=== PATIENT | male | born 1950 | race Caucasian/White ===

== ENCOUNTER 2017-03-20 10:45 | Inpatient (IN) | payer BC, MEDICARE ==
[~2017-03-20] VITALS: Ht 153.9 cm; Wt 53.0 kg
[~2017-03-20 10:45] MED LIST: ALBU18 IN; LISI2.5T47; TIOTCAP IN
[2017-03-20] MEDS ORDERED: ALBU1AER4 IN (12:04)
[2017-03-20] MEDS ORDERED: MOME200A IN (12:04)
[2017-03-20] MEDS ORDERED: IBUP800T24 PO (12:04)
[2017-03-20 12:36] VITALS: BP 116/74
[2017-03-20] MEDS ORDERED: ALBUTEROL SULF 2.5 MG/0.5ML(0.5%) NEB SOLN NEB PRN (14:30)
[2017-03-20] MEDS ORDERED: POTASSIUM CHL 20 Meq TABLET PO ONE (14:30)
[2017-03-20] MEDS ORDERED: HYDROcodone-ACET 5/325MG TAB PO PRN (14:30)
[2017-03-20] MEDS ORDERED: ONDANSETRON HCL 4 MG/2 ML VIAL IV PRN (14:30)
[2017-03-20] MEDS ORDERED: LORazepam 0.5 MG TAB PO PRN (14:30)
[2017-03-20] MEDS ORDERED: FUROSEMIDE 20 MG/2 ML VIAL IV ONE (14:30)
[2017-03-20 15:18] LABS: Basophils # (auto) 0 uL; Basophils % (auto) 0.2 % (0.0-2.0); CONDITION Y; Eosinophils # (auto) 0.2 uL; Eosinophils % (auto) 2.5 % (0.0-7.0); Hematocrit 31.2 % (41.0-53.0); Hemoglobin 10.6 g/dL (13.5-17.5); Lymphocytes # (auto) 0.5 uL; Lymphocytes % (auto) 7.8 % (10.0-50.0); Mean Corpuscular Hemoglobin 32.2 pg (28.0-32.0); Mean Corpuscular Hgb Conc. 34.1 g/dL (32.0-36.0); Mean Corpuscular Volume 94.6 fL (80.0-100.0); Monocytes # (auto) 0.7 uL; Monocytes % (auto) 10.8 % (0.0-12.0); Neutrophils # (auto) 4.7 uL; Neutrophils % (auto) 78.7 % (37.0-80.0); Platelet Count (auto) 427 10^3/uL (140-450); Red Cell Distribution Width 14.7 % (11.6-16.0)
[2017-03-20 15:27] LABS: Albumin 3.6 g/dL (3.4-5.0); Bilirubin, Total 0.3 mg/dL (0.2-1.0); Potassium 5.4 mmol/L (3.5-5.1); Total Protein 7.1 g/dL (6.4-8.2)
[2017-03-20 15:33] LABS: B-Type Natriuretic Peptide 60.68 pg/mL (0-100)
[2017-03-20 15:51] LABS: Temperature: 24.1 C (20.0-25.0)
[2017-03-20 17:23] VITALS: BP 104/68
[2017-03-20 17:23] LABS: Urine RBC None Seen /hpf (0 - 3)
[2017-03-20 17:48] LABS: Urine Bilirubin Negative (Negative); Urine Blood Negative /uL (Negative); Urine Glucose Normal (Normal); Urine Ketone Negative (Negative); Urine Nitrite Negative (Negative); Urine Squamous Epithelial Cell FEW /hpf (<5); Urine Urobilinogen Normal (Negative)
[2017-03-20 17:49] LABS: Urine Color Straw (Yellow)
[2017-03-20] MEDS: IPRATROPIUM BROM 0.5 MG/2.5ML INH SOL NEB SCH (19:08)
[2017-03-20] MEDS: BUDESONIDE (INHALATION) 0.5 MG/2 ML NEB NEB SCH (19:08)
[2017-03-20] MEDS: ALBUTEROL SULF 2.5 MG/0.5ML(0.5%) NEB SOLN NEB SCH (19:08)
[2017-03-20 20:36] LABS: Base Excess 0.8 mmol/L (-2.0-2.0); Blood 02Sat 88.2 % (96-100); Blood COHb 0.3 % (0.5-1.5); Blood MetHb 0.3 % (0.0-1.5); HCO3 26.9 mmol/L (22-26.0); HHb 11.7 % (0.0-5.0); MODE ROOM AIR; O2Hb 87.7 % (94.0-97.0); PCO2 50.1 mmHg (35.0-45.0); PCO2(T) 50.1 mmHg (35.0-45.0); PO2 56.4 mmHg (80.0-100.0); PO2(T) 56.4 mmHg (80.0-100.0); Sample Type Arterial; pH 7.348 (7.350-7.450)
[2017-03-20 21:58] VITALS: BP 119/68
[2017-03-21 02:18] VITALS: BP 119/68
[2017-03-21 05:27] VITALS: BP 120/70
[2017-03-21 06:12] LABS: Basophils # (auto) 0 uL; Basophils % (auto) 0.3 % (0.0-2.0); CONDITION Y; Eosinophils # (auto) 0.3 uL; Eosinophils % (auto) 5.4 % (0.0-7.0); Hematocrit 30.7 % (41.0-53.0); Hemoglobin 10.1 g/dL (13.5-17.5); Lymphocytes # (auto) 0.5 uL; Lymphocytes % (auto) 9.5 % (10.0-50.0); Mean Corpuscular Hemoglobin 31.3 pg (28.0-32.0); Mean Corpuscular Hgb Conc. 32.9 g/dL (32.0-36.0); Mean Platelet Volume 7.5 fL (7.4-10.4); Monocytes # (auto) 0.7 uL; Monocytes % (auto) 11.8 % (0.0-12.0); Platelet Count (auto) 414 10^3/uL (140-450); Red Cell Distribution Width 14.9 % (11.6-16.0); White Blood Cell 5.5 10^3/uL (4.4-10.8)
[2017-03-21 06:23] LABS: BUN/Creatinine Ratio 37.3; Calcium 9.2 mg/dL (8.5-10.1); Potassium 4.8 mmol/L (3.5-5.1)
[2017-03-21] MEDS: IPRATROPIUM BROM 0.5 MG/2.5ML INH SOL NEB SCH ×3 (06:26→12:00)
[2017-03-21] MEDS: BUDESONIDE (INHALATION) 0.5 MG/2 ML NEB NEB SCH (06:26)
[2017-03-21] MEDS: ALBUTEROL SULF 2.5 MG/0.5ML(0.5%) NEB SOLN NEB SCH ×3 (06:26→12:00)
[2017-03-21 08:00] VITALS: BP 124/75
[2017-03-21 08:35] VITALS: BP 124/75
[2017-03-21 11:09] LABS: Allen Test Yes; Base Excess -1.7 mmol/L (-2.0-2.0); Blood 02Sat 83.9 % (96-100); Blood COHb 0.3 % (0.5-1.5); Blood MetHb 0.4 % (0.0-1.5); MODE ROOM AIR; O2Hb 83.3 % (94.0-97.0); PCO2 51.2 mmHg (35.0-45.0); PCO2(T) 51.2 mmHg (35.0-45.0); PO2 50.5 mmHg (80.0-100.0); PO2(T) 50.5 mmHg (80.0-100.0); Sample Type Arterial; pH 7.307 (7.350-7.450)
[2017-03-21 12:07] VITALS: BP 124/75
[2017-03-21 12:13] VITALS: BP 108/56
== END 2017-03-21 17:58 | disposition home or self-care (01) | DRG 190 ==
LOC: TELE-E-ADS 11:22 → TELE-EAST 14:00 → EAST 19:03
PROVIDERS: ADMIT Internal Medicine; ATTEND Internal Medicine
DX: J44.1 Chronic obstructive pulmonary disease with (acute) exacerbation (principal); I50.31 Acute diastolic (congestive) heart failure; J96.10 Chronic respiratory failure, unspecified whether with hypoxia or hypercapnia; I11.0 Hypertensive heart disease with heart failure; F41.9 Anxiety disorder, unspecified; D64.9 Anemia, unspecified; Z99.81 Dependence on supplemental oxygen; Z87.891 Personal history of nicotine dependence
CPT/HCPCS: 36415; 36600; 71020; 80048; 80053; 81001; 82805; 83880; 85025; 93306; 94640

== ENCOUNTER → 2018-06-18 | Outpatient (CLI) | payer BC, MEDICARE ==
[~2018-06-18] MED LIST changes: -ALBU18 IN; +ALBU1AER4 IN; +IBUP800T24 PO; +MOME200A IN
[2018-06-18 08:49] LABS: Basophils # (auto) 0 uL; Basophils % (auto) 0.4 % (0.0-2.0); Eosinophils # (auto) 0.3 uL; Eosinophils % (auto) 7.2 % (0.0-7.0); Hematocrit 34.6 % (41.0-53.0); Hemoglobin 11.7 g/dL (13.5-17.5); Lymphocytes # (auto) 0.5 uL; Lymphocytes % (auto) 10.9 % (10.0-50.0); Mean Corpuscular Hemoglobin 32.6 pg (28.0-32.0); Mean Corpuscular Hgb Conc. 33.9 g/dL (32.0-36.0); Mean Corpuscular Volume 96.3 fL (80.0-100.0); Monocytes # (auto) 0.6 uL; Monocytes % (auto) 13.2 % (0.0-12.0); Neutrophils # (auto) 3.2 uL; Neutrophils % (auto) 68.3 % (37.0-80.0); Nucleated Red Blood Cells % 0.1 %; Platelet Count (auto) 321 10^3/uL (140-450); Red Cell Distribution Width 15.3 % (11.8-14.3); White Blood Cell 4.6 10^3/uL (4.4-10.8)
[2018-06-18 08:53] LABS: Urine Bacteria NONE SEEN /hpf (None Seen); Urine Blood Negative /uL (Negative); Urine Specific Gravity 1.012 (1.001-1.035); Urine WBC <1 /hpf (0 - 3)
[2018-06-18 09:09] LABS: Albumin 3.9 g/dL (3.4-5.0); Calcium 9.1 mg/dL (8.5-10.1)
[2018-06-18 09:13] LABS: Bilirubin, Total 0.3 mg/dL (0.2-1.0); Total Protein 7.5 g/dL (6.4-8.2)
[2018-06-18 09:24] LABS: BUN/Creatinine Ratio 32.2
[2018-06-18 09:30] LABS: Potassium 5.7 mmol/L (3.5-5.1)
== END | disposition home or self-care (01) ==
LOC: LAB 08:20
PROVIDERS: ATTEND Nurse Practitioner
DX: E78.5 Hyperlipidemia, unspecified (principal); J44.9 Chronic obstructive pulmonary disease, unspecified; Z87.891 Personal history of nicotine dependence
CPT/HCPCS: 36415; 80053; 80061; 81001; 84153; 84443; 85025

== ENCOUNTER → 2018-06-18 | Outpatient (CLI) | payer MEDICARE | END | disposition home or self-care (01) | LOC: RT 08:36 | PROVIDERS: ATTEND Nurse Practitioner | DX: J44.9 Chronic obstructive pulmonary disease, unspecified (principal) | CPT/HCPCS: 36600; 82805 ==

== ENCOUNTER → 2018-06-22 | Outpatient (CLI) | payer MEDICARE ==
[2018-06-22 12:40] LABS: Potassium 4.8 mmol/L (3.5-5.1)
[2018-06-22 12:46] LABS: BUN/Creatinine Ratio 28.7; Bilirubin, Total 0.5 mg/dL (0.2-1.0); Calcium 8.9 mg/dL (8.5-10.1); Total Protein 7.5 g/dL (6.4-8.2)
== END | disposition home or self-care (01) ==
LOC: LAB 10:48
PROVIDERS: ATTEND Nurse Practitioner
DX: E87.5 Hyperkalemia (principal)
CPT/HCPCS: 36415; 80053

== ENCOUNTER → 2018-12-06 | Outpatient (CLI) | payer MEDICARE ==
[2018-12-06 09:32] LABS: Urine WBC None Seen /hpf (0 - 3)
[2018-12-06 09:37] LABS: Basophils # (auto) 0.1 uL; Basophils % (auto) 1.6 % (0.0-2.0); Eosinophils # (auto) 0.1 uL; Eosinophils % (auto) 1.7 % (0.0-7.0); Hematocrit 33.9 % (41.0-53.0); Hemoglobin 11.1 g/dL (13.5-17.5); Lymphocytes # (auto) 0.7 uL; Lymphocytes % (auto) 15.4 % (10.0-50.0); Mean Corpuscular Hemoglobin 31.6 pg (28.0-32.0); Mean Corpuscular Hgb Conc. 32.8 g/dL (32.0-36.0); Mean Corpuscular Volume 96.3 fL (80.0-100.0); Monocytes # (auto) 0.4 uL; Monocytes % (auto) 8.5 % (0.0-12.0); Neutrophils # (auto) 3.4 uL; Neutrophils % (auto) 72.8 % (37.0-80.0); Nucleated Red Blood Cells % 0.1 %; Platelet Count (auto) 314 10^3/uL (140-450); Red Blood Cells 3.52 10^6/uL (4.5-5.90); Red Cell Distribution Width 15.5 % (11.8-14.3); White Blood Cell 4.6 10^3/uL (4.4-10.8)
[2018-12-06 09:44] LABS: Urine Bacteria NONE SEEN /hpf (None Seen); Urine Blood Negative /uL (Negative); Urine Specific Gravity 1.018 (1.001-1.035)
[2018-12-06 10:04] LABS: Albumin 4.1 g/dL (3.4-5.0); Calcium 9.2 mg/dL (8.5-10.1); Potassium 4.8 mmol/L (3.5-5.1)
[2018-12-06 10:10] LABS: BUN/Creatinine Ratio 31.1; Bilirubin, Total 0.4 mg/dL (0.2-1.0); Total Protein 7.5 g/dL (6.4-8.2)
== END | disposition home or self-care (01) ==
LOC: LAB 08:48
PROVIDERS: ATTEND Nurse Practitioner
DX: E78.5 Hyperlipidemia, unspecified (principal)
CPT/HCPCS: 36415; 80053; 80061; 81001; 84443; 85025

== ENCOUNTER → 2018-12-10 | Outpatient (CLI) | payer MEDICARE | END | disposition home or self-care (01) | LOC: LAB 11:01 | PROVIDERS: ATTEND Nurse Practitioner | DX: E78.5 Hyperlipidemia, unspecified (principal) | CPT/HCPCS: 82270 ==

== ENCOUNTER → 2019-02-27 | Outpatient (CLI) | payer MEDICARE ==
[~2019-02-27] MED LIST changes: +ALBUTEROL SULF 2.5 MG/0.5ML(0.5%) NEB SOLN ONE
== END | disposition home or self-care (01) ==
LOC: RT 08:35
PROVIDERS: ATTEND Internal Medicine Pulmonary Disease
DX: R06.02 Shortness of breath (principal)
CPT/HCPCS: 94060; J7611

== ENCOUNTER → 2019-07-24 | Outpatient (CLI) | payer MEDICARE ==
[~2019-07-24] MED LIST changes: -ALBUTEROL SULF 2.5 MG/0.5ML(0.5%) NEB SOLN ONE
== END | disposition home or self-care (01) ==
LOC: RT 09:04
PROVIDERS: ATTEND Internal Medicine
DX: J96.11 Chronic respiratory failure with hypoxia (principal); J44.9 Chronic obstructive pulmonary disease, unspecified
CPT/HCPCS: 36600; 82805; 94640

== ENCOUNTER → 2019-12-18 | Day surgery (SDC) | payer MEDICARE ==
[2019-12-13 09:29] LABS: Basophils # (auto) 0 10 ^3/uL (0-0.2); Eosinophils # (auto) 0.3 10 ^3/uL (0-0.8); Eosinophils % (auto) 8.6 % (0.0-7.0); Hematocrit 34.3 % (41.0-53.0); Hemoglobin 11.2 g/dL (13.5-17.5); Lymphocytes # (auto) 0.6 10 ^3/uL (0.4-5.4); Lymphocytes % (auto) 14.9 % (10.0-50.0); Mean Corpuscular Hemoglobin 31.4 pg (28.0-32.0); Mean Corpuscular Hgb Conc. 32.7 g/dL (32.0-36.0); Mean Corpuscular Volume 95.9 fL (80.0-100.0); Monocytes # (auto) 0.5 10 ^3/uL (0-1.3); Monocytes % (auto) 12.2 % (0.0-12.0); Neutrophils # (auto) 2.5 10 ^3/uL (1.6-8.6); Neutrophils % (auto) 63.3 % (37.0-80.0); Platelet Count (auto) 303 10^3/uL (140-450); Red Blood Cells 3.58 10^6/uL (4.5-5.90); Red Cell Distribution Width 15.7 % (11.8-14.3); White Blood Cell 3.9 10^3/uL (4.4-10.8)
[2019-12-13 09:33] LABS: Urine Bacteria NONE SEEN /hpf (None Seen); Urine Blood Negative /uL (Negative); Urine Hyaline Cast MOD /lpf (0 - 2); Urine Specific Gravity 1.018 (1.001-1.035); Urine WBC <1 /hpf (0 - 3)
[2019-12-13 09:46] LABS: Calcium 9.1 mg/dL (8.5-10.1); Potassium 4.2 mmol/L (3.5-5.1)
[2019-12-13 09:52] LABS: BUN/Creatinine Ratio 19.4; Bilirubin, Total 0.5 mg/dL (0.2-1.0); Total Protein 7.6 g/dL (6.4-8.2)
[2019-12-13 10:11] LABS: Partial Thromboplastin Time 26.2 sec (23.64-32.05)
[~2019-12-18] VITALS: Ht 167.6 cm; Wt 61.2 kg
[~2019-12-18] MED LIST changes: +FLUT1INH6 IN; +LIDOCAINE HCL 2 %PF INJ 10ML AMP IJ ONE; +LISI-646 PO; -LISI2.5T47; -MOME200A IN; +ceFAZolin 1GM VL ONE; +ceFAZolin 1GM/50ML 50 ML IV ONE
[2019-12-18 10:34] VITALS: BP 151/81
== END | disposition home or self-care (01) ==
LOC: SUR 07:52
PROVIDERS: ATTEND Podiatrist Foot & Ankle Surgery
DX: L97.819 Non-pressure chronic ulcer of other part of right lower leg with unspecified severity (principal); L89.893 Pressure ulcer of other site, stage 3; J43.9 Emphysema, unspecified; F41.9 Anxiety disorder, unspecified; Z79.899 Other long term (current) drug therapy; Z98.890 Other specified postprocedural states
CPT/HCPCS: 15004; 15275; 36415; 80053; 81001; 85025; 85610; 85730; 88304; 88312; 88313; J0690; Q4161

== ENCOUNTER → 2020-03-27 | Outpatient (CLI) | payer MEDICARE ==
[~2020-03-27] MED LIST changes: -LIDOCAINE HCL 2 %PF INJ 10ML AMP IJ ONE; -ceFAZolin 1GM VL ONE; -ceFAZolin 1GM/50ML 50 ML IV ONE
[2020-03-27 09:53] LABS: Urine WBC None Seen /hpf (0 - 3)
[2020-03-27 10:25] LABS: Basophils # (auto) 0 10 ^3/uL (0-0.2); Eosinophils # (auto) 0.2 10 ^3/uL (0-0.8); Hematocrit 33.8 % (41.0-53.0); Hemoglobin 10.9 g/dL (13.5-17.5); Lymphocytes # (auto) 0.6 10 ^3/uL (0.4-5.4); Lymphocytes % (auto) 13.1 % (10.0-50.0); Mean Corpuscular Hemoglobin 30.6 pg (28.0-32.0); Mean Corpuscular Hgb Conc. 32.2 g/dL (32.0-36.0); Mean Corpuscular Volume 95.3 fL (80.0-100.0); Monocytes # (auto) 0.5 10 ^3/uL (0-1.3); Neutrophils # (auto) 2.9 10 ^3/uL (1.6-8.6); Neutrophils % (auto) 68.9 % (37.0-80.0); Nucleated Red Blood Cells % 0.1 %; Platelet Count (auto) 290 10^3/uL (140-450); Red Blood Cells 3.55 10^6/uL (4.5-5.90); White Blood Cell 4.3 10^3/uL (4.4-10.8)
[2020-03-27 10:29] LABS: Urine Bacteria NONE SEEN /hpf (None Seen); Urine Blood Negative /uL (Negative); Urine Specific Gravity 1.015 (1.001-1.035)
[2020-03-27 11:00] LABS: Albumin 4.3 g/dL (3.4-5.0); Calcium 8.9 mg/dL (8.5-10.1); Potassium 4.7 mmol/L (3.5-5.1)
[2020-03-27 11:07] LABS: BUN/Creatinine Ratio 26.8; Bilirubin, Total 0.5 mg/dL (0.2-1.0); Total Protein 7.2 g/dL (6.4-8.2)
== END | disposition home or self-care (01) ==
LOC: LAB 09:47
PROVIDERS: ATTEND Nurse Practitioner
DX: E78.5 Hyperlipidemia, unspecified (principal); Z00.00 Encounter for general adult medical examination without abnormal findings; R73.9 Hyperglycemia, unspecified
CPT/HCPCS: 36415; 80053; 80061; 81001; 83036; 84443; 85025

== ENCOUNTER 2020-04-21 09:46 | Inpatient (IN) | payer MEDICARE ==
[~2020-04-21] VITALS: Ht 167.6 cm; Wt 58.9 kg
[2020-04-21] MEDS ORDERED: SODIUM CHLORIDE 0.9% 1,000 ML IV ONE ×2 (10:24→12:15)
[2020-04-21] MEDS ORDERED: methylPREDNISolone SOD SUCC 125 MG/2 ML VL IV ONE (10:30)
[2020-04-21] MEDS ORDERED: ALBUTEROL SULF 2.5 MG/0.5ML(0.5%) NEB SOLN NEB ONE (10:30)
[2020-04-21 11:12] LABS: Urine WBC None Seen /hpf (0 - 3)
[2020-04-21 11:13] LABS: Hemoglobin 11.8 g/dL (13.5-17.5); Mean Corpuscular Hemoglobin 31.2 pg (28.0-32.0); Mean Corpuscular Hgb Conc. 32.9 g/dL (32.0-36.0); Platelet Count (auto) 365 10^3/uL (140-450); Red Blood Cells 3.79 10^6/uL (4.5-5.90); Red Cell Distribution Width 14.6 % (11.8-14.3); White Blood Cell 6.4 10^3/uL (4.4-10.8)
[2020-04-21 11:24] LABS: Urine Bacteria NONE SEEN /hpf (None Seen); Urine Blood Negative /uL (Negative); Urine Hyaline Cast FEW /lpf (0 - 2)
[2020-04-21 11:29] LABS: Albumin 3.6 g/dL (3.4-5.0); Anion Gap 4 (5-15); Blood Urea Nitrogen 45 mg/dL (7-18); Calcium 9.5 mg/dL (8.5-10.1); Carbon Dioxide 32 mmol/L (21-32); Chloride 104 mmol/L (98-107); Glucose 100 mg/dL (74-106); INR 0.97 (0.9-1.15); Partial Thromboplastin Time 23.8 sec (23.0-31.2); Potassium 4.4 mmol/L (3.5-5.1); Sodium 140 mmol/L (136-145)
[2020-04-21 11:35] LABS: Alanine Aminotransferase 18 U/L (16-61); Alkaline Phosphatase 50 U/L (45-117); Aspartate Aminotransferase 14 U/L (15-37); BUN/Creatinine Ratio 35.7; Bilirubin, Total 0.2 mg/dL (0.2-1.0); GFR African American 73 mL/min; GFR Non-African American 60 mL/min; Total Protein 7.5 g/dL (6.4-8.2)
[2020-04-21] MEDS ORDERED: AZITHROMYCIN 500MG/ 250ML 250 ML IV ONE (11:45)
[2020-04-21] MEDS ORDERED: cefTRIAXone 1GM/50ML D5W 50 ML IV ONE (11:45)
[2020-04-21 12:00] LABS: Band Neutrophils % (manual) 0; Basophils % (manual) 0 (0.0-2.0); Blast Cells 0; Metamyelocytes % 0; Myelocytes % 0; Promyelocytes % 0; Reactive Lymphocytes 0
[2020-04-21] MEDS: SODIUM CHLORIDE 0.9% 1,000 ML IV SCH (12:01)
[2020-04-21 12:02] LABS: Eosinophils % (manual) 26 (0-7); Lymphocytes % (manual) 11 (10.0-50.0); Monocytes % (manual) 6 (0-12)
[2020-04-21] MEDS ORDERED: ALUM & MAG HYDROX-SIMETH LIQ(MAALOX) 30 ML PO PRN (12:15)
[2020-04-21] MEDS ORDERED: LORazepam 0.5 MG TAB PO PRN (12:15)
[2020-04-21] MEDS ORDERED: ACETAMINOPHEN 325 MG TAB PO PRN ×2 (12:15→14:45)
[2020-04-21] MEDS ORDERED: ACETAMINOPHEN 500 MG TAB PO PRN (12:15)
[2020-04-21] MEDS ORDERED: ONDANSETRON HCL 4 MG/2 ML VIAL IV PRN (12:15)
[2020-04-21] MEDS ORDERED: MORPHINE SULF INJ 2 MG/ML SYRINGE 1ML IV PRN ×2 (12:15)
[2020-04-21] MEDS ORDERED: NITROGLYCERIN 0.4 MG SL TAB SL PRN (12:15)
[2020-04-21] MEDS ORDERED: DOCUSATE SOD 100 MG CAP PO PRN (12:15)
[2020-04-21] MEDS ORDERED: HYDROcodone-ACET 5/325MG TAB PO PRN (12:15)
[2020-04-21] MEDS ORDERED: METOCLOPRAMIDE HCL 5MG/ml INJ 2ml VIAL IV PRN (12:15)
[2020-04-21] MEDS ORDERED: ALBUAER3 IN (12:52)
[2020-04-21] MEDS ORDERED: LISINOPRIL 10 MG TAB PO ONE (13:00)
[2020-04-21] MEDS ORDERED: FUROSEMIDE 20 MG/2 ML VIAL IV ONE (13:00)
[2020-04-21 13:30] VITALS: BP 175/70
[2020-04-21 13:50] LABS: Magnesium 2.4 mg/dL (1.6-2.6)
[2020-04-21 13:56] LABS: Alcohol, Urine < 3.0 mg/dL (0-10); Amphetamine Screen, Urine NEGATIVE (NEGATIVE); Barbiturate Scree,Urine NEGATIVE (NEGATIVE); Benzodiazephine Screen, Urine NEGATIVE (NEGATIVE); Cannabinoid Screen, Urine NEGATIVE (NEGATIVE); Cocaine Screen, Urine NEGATIVE (NEGATIVE); Opiate Scree,Urine NEGATIVE (NEGATIVE); Phencyclidine Screen, Urine NEGATIVE (NEGATIVE)
[2020-04-21 13:58] LABS: CRP High Sensitivity 2.35 mg/dL (< 0.3)
[2020-04-21] MEDS ORDERED: ALBUTEROL SULF HFA 90MCG INH 200DOSE IN SCH (14:00)
[2020-04-21 14:42] VITALS: BP 149/57
--- NOTE | 2020-04-21 14:42 | NUR ---
MS admit from [facility] admitted to tele/MS after SBAR received. Patient oriented to UZIEL GOFF RN primary RN, TELE unit, room 249, bed B, and unit policies regarding patient care and visiting hours. Patient weighed by bedscale and encouraged to call if they need something. All questions and concerns addressed, patient verbalized understanding.
[2020-04-21] MEDS ORDERED: hydrALAZINE HCL 20 MG/ML VL IV PRN (15:00)
--- NOTE | 2020-04-21 16:40 | NUR ---
DC'D ALBUTEROL 180 MCG/ PULMICORT 360MCG PER PROTOCOL FOR COVID NEGATIVE RESULTS. PT ORDERED ALBUTEROL Q4 PRN. NO RESPIRATORY DISTRESS NOTED. WILL CONTINUE TO MONITOR PT.
[2020-04-21 16:41] VITALS: BP 131/52
[2020-04-21] MEDS ORDERED: ALBUTEROL SULF 2.5 MG/0.5ML(0.5%) NEB SOLN NEB PRN ×2 (16:45→17:00)
[2020-04-21] MEDS ORDERED: FUROSEMIDE 20 MG/2 ML VIAL IV SCH (18:00)
--- NOTE | 2020-04-21 18:00 | NUR ---
PATIENT ARRIVED FROM [facility] TO ROOM 282 VIA WHEELCHAIR. PATIENT TOLERATED TRANSFER VIA WHEELCHAIR WITH NO SIGNS OF DISTRESS. PATIENT PLACED ON 4L NC. PATIENT TELEBOX CHANGED FROM NUMBER 3 TO TELEBOX NUMBER 74. WILL CONTINUE TO MONITOR.
--- NOTE | 2020-04-21 18:20 | NUR ---
CARE ENDORSED TO JORGE: REPORT GIVEN TO JORGE LESLIE AT ROOM 282 BEDSIDE. PATIENT LEFT WITH ALL BELONGINGS.
--- NOTE | 2020-04-21 18:29 | NUR ---
CALL TO : REACHED, PASSWORD RECEIVED. UPDATED ON PLAN OF CARE. ADDRESSED CONCERNS TO BEST OF THIS RN'S ABILITY.
--- NOTE | 2020-04-21 19:40 | NUR ---
Opening Shift Note Assumed care of patient, awake and alert x4. No S/S of distress/SOB or pain. Call light is within reach, side rails up x2, bed is in the lowest position. Instructed on POC and to call for assist PRN. All questions and concerns addressed, will continue to monitor for changes Q1hr and PRN.
[2020-04-21 21:40] LABS: Lactic Acid w/Reflex 2.2 mmol/L (0.4-2.0)
[2020-04-21 21:42] LABS: Cholesterol 163 mg/dL (< 200); HDL Cholesterol 61 mg/dL (40-59); LDL Cholesterol 95 mg/dL (< 100); Triglycerides 50 mg/dL (< 150)
[2020-04-21 22:00] VITALS: BP 102/53
[2020-04-21] MEDS ORDERED: BUDESONIDE (INHALATION) 180 MCG IH IN SCH (22:00)
[2020-04-21] MEDS: FAMOTIDINE (10MG/ML) 2ML VL IV SCH (22:02)
--- NOTE | 2020-04-21 22:58 | NUR ---
Respiratory note: PT SLEEPING AT THIS TIME, NO RESP DISTRESS NOTED, NO TX INDICATED, PULSE OX 100% ON 4LNC, HR 77, RR 18
[2020-04-22] MEDS: SODIUM CHLORIDE 0.9% 1,000 ML IV SCH (04:41)
[2020-04-22 05:24] VITALS: BP 107/62
[2020-04-22 05:41] LABS: Basophils # (auto) 0 10 ^3/uL (0-0.2); Basophils % (auto) 0.5 % (0.0-2.0); Eosinophils # (auto) 0 10 ^3/uL (0-0.8); Eosinophils % (auto) 0.1 % (0.0-7.0); Hematocrit 30.5 % (41.0-53.0); Hemoglobin 10.1 g/dL (13.5-17.5); Lymphocytes # (auto) 0.2 10 ^3/uL (0.4-5.4); Lymphocytes % (auto) 4.1 % (10.0-50.0); Mean Corpuscular Hemoglobin 31.3 pg (28.0-32.0); Monocytes # (auto) 0.2 10 ^3/uL (0-1.3); Monocytes % (auto) 4.2 % (0.0-12.0); Neutrophils # (auto) 4.2 10 ^3/uL (1.6-8.6); Neutrophils % (auto) 91.1 % (37.0-80.0); Platelet Count (auto) 357 10^3/uL (140-450); Red Blood Cells 3.21 10^6/uL (4.5-5.90); Red Cell Distribution Width 14.8 % (11.8-14.3); White Blood Cell 4.6 10^3/uL (4.4-10.8)
[2020-04-22 06:08] LABS: Potassium 4.9 mmol/L (3.5-5.1)
[2020-04-22 06:15] LABS: Albumin 3.2 g/dL (3.4-5.0); BUN/Creatinine Ratio 39.5; Bilirubin, Total 0.2 mg/dL (0.2-1.0); Calcium 9.1 mg/dL (8.5-10.1); Total Protein 6.5 g/dL (6.4-8.2)
--- NOTE | 2020-04-22 06:58 | NUR ---
IV removal by patient IV DC'd with clean sterile technique, catheter fully intact. Pressure dressing applied to site. Patient tolerated well.
--- NOTE | 2020-04-22 08:00 | NUR ---
Opening Shift Note Assumed care of patient, awake, alert and oriented X4. No S/S of distress/SOB or pain. O2 @ 4 LPM via nasal cannula with sats @ 98%. Tele# [id number], sinus tachycardia @ 101 bpm. Patient has no IV access as per night nurse, "he pulled it out". Night nurse attempted new access with no results. Instructed on POC and to call for assist PRN, verbalized understanding. Bed locked, in lowest position, call light within reach, will continue to monitor for changes Q1hr and PRN.
--- NOTE | 2020-04-22 08:00 | NUR ---
Respiratory note: PT AWAKE, AND ALERT. NO RESPIRATORY DISTRESS NOTED. SP02 96% 4L NC, HR 98, RR 18, BS CLEAR/DIMINISHED BILATERALLY. PRN MEDNEB TX NOT INDICATED AT THIS TIME. PT INFORMED TO PUSH CALL BUTTON IF INCREASED WOB, SOB, OR WHEEZING OCCURS.
[2020-04-22 09:00] VITALS: BP 121/66
[2020-04-22] MEDS: cefTRIAXone 1GM/50ML D5W 50 ML IV SCH (09:10)
--- NOTE | 2020-04-22 09:10 | NUR ---
IV insertion IV access obtained, via clean sterile technique by inserting 22 gauge catheter at right forearm after 2 attempts. IV secured properly. No trauma to site. Patient tolerated well.
[2020-04-22] MEDS ORDERED: ENOXAPARIN SOD 40 MG/0.4 ML SYRINGE SC SCH (10:00)
[2020-04-22] MEDS ORDERED: DexAMETHasone SOD PHOS 10MG/1ML VIAL INJ IV SCH (10:00)
[2020-04-22] MEDS ORDERED: ASCORBIC ACID 1,000 MG TAB PO SCH (10:00)
[2020-04-22] MEDS ORDERED: CHOLECALCIFEROL (VITD3) 2,000 UNIT CAP PO SCH (10:00)
[2020-04-22] MEDS: ZINC SULFATE 220mg CAP or TAB PO SCH (10:00)
[2020-04-22] MEDS: FAMOTIDINE (10MG/ML) 2ML VL IV SCH (10:33)
[2020-04-22] MEDS: AZITHROMYCIN 500MG/ 250ML 250 ML IV SCH (10:33)
[2020-04-22] MEDS: LISINOPRIL 10 MG TAB PO SCH (10:34)
--- NOTE | 2020-04-22 11:05 | NUR ---
PULMONARY Dr Moore at bedside for Pulmonary consult, new orders received and followed through. Patient updated on plan of care, verbalized understanding.
--- NOTE | 2020-04-22 12:24 | NUR ---
ROUNDS Dr Ames at bedside for rounds, new orders received and followed through. Patient updated on plan of care, verbalized understanding. Per Dr Ames, patient's 02 decreased to 3 LPM via nasal cannula.
--- NOTE | 2020-04-22 12:28 | NUR ---
SPUTUM Specimen container give to patient for sputum sample. Informed to call talent solutions manager light when sputum sample collected, verbalized understanding.
[2020-04-22 13:00] VITALS: BP 126/77
[2020-04-22 16:55] VITALS: BP 114/80
--- NOTE | 2020-04-22 18:49 | NUR ---
Respiratory note: ASSESSED PT FOR PRN MED NEB AT THIS TIME, PT DENIES SOB AT THIS TIME, NO RESP DISTRESS NOTED, NO TX INDICATED. PULSE OX 100% ON 4LNC, HR 77, RR 18, BILATERAL BS DIMINISHED. TITRATED FIO2 TO 3LNC AT THIS TIME
--- NOTE | 2020-04-22 19:02 | NUR ---
Care endorsed to ANUJ Beltran, night nurse.
--- NOTE | 2020-04-22 21:59 | NUR ---
Paged hospitalist, patient is requesting a sleeping pill.
[2020-04-22 22:00] VITALS: BP 97/65
[2020-04-22] MEDS ORDERED: methylPREDNISolone SOD SUCC 40 MG/ML VL IV SCH (22:00)
[2020-04-22] MEDS ORDERED: TEMAZEPAM 15 MG CAP PO ONE (22:30)
--- NOTE | 2020-04-22 22:30 | NUR ---
Hospitalist called back, new order received for Temazepam 15 mg one time. See eMAR.
[2020-04-23 05:00] VITALS: BP 102/61
--- NOTE | 2020-04-23 07:45 | NUR ---
Opening Shift Note Assumed care of patient, awake and alert. No S/S of distress/SOB, reports feeling better, remains on O2 at 4l, denies pain. Instructed on POC and to call for assist PRN, will continue to monitor for changes Q1hr and PRN.
[2020-04-23 09:00] VITALS: BP 115/65
[2020-04-23] MEDS: cefTRIAXone 1GM/50ML D5W 50 ML IV SCH (09:24)
[2020-04-23] MEDS: ZINC SULFATE 220mg CAP or TAB PO SCH (09:38)
[2020-04-23] MEDS ORDERED: CHOLECALCIFEROL (VITD3) 1,000UNIT=25mCg TAB PO SCH (10:00)
[2020-04-23] MEDS ORDERED: ASCORBIC ACID 500 MG TAB PO SCH (10:00)
[2020-04-23] MEDS: predniSONE 20 MG TAB PO SCH (10:17)
[2020-04-23] MEDS: LISINOPRIL 10 MG TAB PO SCH (10:17)
[2020-04-23] MEDS: AZITHROMYCIN 500MG/ 250ML 250 ML IV SCH (10:17)
--- NOTE | 2020-04-23 10:18 | NUR ---
Respiratory note: ASSESSED PT FOR PRN MEDNEB TX. HR 85, RR 16, SPO2 97% ON 3LPM NASAL CANNULA. BREATH SOUNDS CLEAR T/O. PT SITTING IN CHAIR, DENIES SOB, NO S/S OF DISTRESS. MEDNEB TX NOT INDICATED AT THIS TIME. PT AWARE TO CALL FOR RT IF NEEDED.
[2020-04-23] MEDS: IPRATROPIUM BROM 0.5 MG/2.5ML INH SOL NEB SCH ×2 (12:13→18:04)
[2020-04-23] MEDS: ALBUTEROL SULF 2.5 MG/0.5ML(0.5%) NEB SOLN NEB SCH ×2 (12:13→18:04)
--- NOTE | 2020-04-23 12:13 | NUR ---
Respiratory note: AT BEDSIDE FOR SCHEDULED 1200 MEDNEB TX, PT EATING LUNCH AND REQUESTING TO TAKE TX LATER. NO S/S OF DISTRESS. WILL RETURN AT A LATER TIME.
[2020-04-23] MEDS: DOXYCYCLINE 100MG/250ML 250 ML IV SCH ×2 (14:59→23:15)
--- NOTE | 2020-04-23 19:52 | NUR ---
Opening Shift Note Received report and assumed care of patient. Patient is awake and alert. No signs or symptoms of distress noted. Instructed patient on plan of care and to call for assistance as needed. Will continue to monitor.
[2020-04-23 22:00] VITALS: BP 113/61
[2020-04-24 05:24] VITALS: BP 125/95
[2020-04-24] MEDS: IPRATROPIUM BROM 0.5 MG/2.5ML INH SOL NEB SCH ×2 (06:44→11:43)
[2020-04-24] MEDS: ALBUTEROL SULF 2.5 MG/0.5ML(0.5%) NEB SOLN NEB SCH ×2 (06:44→11:43)
--- NOTE | 2020-04-24 07:19 | NUR ---
Opening Shift Note Assumed care of patient, awake and alert, reports frustration and wants to go home. No S/S of distress/SOB or pain. Instructed on POC and to call for assist PRN, will continue to monitor for changes Q1hr and PRN.
[2020-04-24 09:00] VITALS: BP 141/72
[2020-04-24] MEDS: ZINC SULFATE 220mg CAP or TAB PO SCH (09:52)
[2020-04-24] MEDS: predniSONE 20 MG TAB PO SCH (09:52)
[2020-04-24] MEDS: LISINOPRIL 10 MG TAB PO SCH (09:53)
[2020-04-24 09:57] VITALS: BP 141/72
[2020-04-24] MEDS: DOXYCYCLINE 100MG/250ML 250 ML IV SCH (12:37)
[2020-04-24 13:00] VITALS: BP 125/73
[2020-04-24 13:09] VITALS: BP 141/72
--- NOTE | 2020-04-24 14:40 | NUR ---
Discharge instructions given as ordered. Encourage to follow up with PMD as instructed. All questions and concerns addressed. Patient verbalized understanding. Medication reconciliation form completed and copy given to patient. . IV removed with catheter intact, pressure dressing applied. Patient taken to vehicle via wheelchair with all personal belongings, accompanied by staff to family member. No distress noted at time of departure.
== END 2020-04-24 14:15 | disposition home or self-care (01) | DRG 193 ==
LOC: ER 09:46 → TELE 09:47 → TELE-EAST 14:38 → TELE-WESTW 18:11 → WEST WING 04-22 13:15
PROVIDERS: ADMIT Hospitalist; ATTEND Internal Medicine
DX: J18.9 Pneumonia, unspecified organism (principal); J96.22 Acute and chronic respiratory failure with hypercapnia; J96.21 Acute and chronic respiratory failure with hypoxia; I48.92 Unspecified atrial flutter; I47.1 Supraventricular tachycardia; R64 Cachexia; I10 Essential (primary) hypertension; Z68.20 Body mass index [BMI] 20.0-20.9, adult; D64.9 Anemia, unspecified; F41.9 Anxiety disorder, unspecified; I48.91 Unspecified atrial fibrillation; F17.200 Nicotine dependence, unspecified, uncomplicated; J43.9 Emphysema, unspecified; Z20.828 Contact with and (suspected) exposure to other viral communicable diseases; Z79.899 Other long term (current) drug therapy; Z86.14 Personal history of Methicillin resistant Staphylococcus aureus infection; Z99.81 Dependence on supplemental oxygen
CPT/HCPCS: 36415; 36600; 71045; 71250; 80053; 80061; 80307; 81001; 82728; 82805; 83036; 83605; 83615; 83735; 83880; 84443; 84484; 85007; 85025; 85027; 85379; 85610; 85730; 86141; 86738; 87040; 87070; 87077; 87086; 87186; 87205; 87278; 87426; 93005; 93306; 94640; 99291; G0378; J0696; J3490

== ENCOUNTER → 2020-12-08 | Outpatient (CLI) | payer MEDICARE ==
[~2020-12-08] MED LIST changes: -ALBU1AER4 IN; +ALBUAER3 IN; -IBUP800T24 PO; +IBUP800T26 PO; -LISI-646 PO; +LISI20TA28 PO
[2020-12-08 10:20] LABS: Basophils # (auto) 0 10 ^3/uL (0-0.2); Hemoglobin 7.3 g/dL (13.5-17.5); Lymphocytes # (auto) 0.5 10 ^3/uL (0.4-5.4); Monocytes # (auto) 0.5 10 ^3/uL (0-1.3); Neutrophils # (auto) 3.4 10 ^3/uL (1.6-8.6); Nucleated Red Blood Cells % 0.1 %; White Blood Cell 4.6 10^3/uL (4.4-10.8)
[2020-12-08 10:26] LABS: Basophils % (auto) 0.6 % (0.0-2.0); Eosinophils # (auto) 0.2 10 ^3/uL (0-0.8); Eosinophils % (auto) 3.5 % (0.0-7.0); Hematocrit 21.9 % (41.0-53.0); Lymphocytes % (auto) 11.3 % (10.0-50.0); Mean Corpuscular Hemoglobin 32.7 pg (28.0-32.0); Mean Corpuscular Hgb Conc. 33.2 g/dL (32.0-36.0); Mean Corpuscular Volume 98.4 fL (80.0-100.0); Monocytes % (auto) 11.8 % (0.0-12.0); Neutrophils % (auto) 72.8 % (37.0-80.0); Platelet Count (auto) 355 10^3/uL (140-450); Red Blood Cells 2.22 10^6/uL (4.5-5.90)
[2020-12-08 10:50] LABS: Urine Bacteria NONE SEEN /hpf (None Seen); Urine Blood Negative /uL (Negative); Urine Hyaline Cast FEW /lpf (0 - 2); Urine Mucus FEW (None Seen); Urine Specific Gravity 1.016 (1.001-1.035); Urine WBC <1 /hpf (0 - 3)
[2020-12-08 11:18] LABS: BUN/Creatinine Ratio 28.3
[2020-12-08 11:41] LABS: Potassium 5.6 mmol/L (3.5-5.1)
== END | disposition home or self-care (01) ==
LOC: LAB 09:59
PROVIDERS: ATTEND Student in an Organized Health Care Education/Training Program
DX: I10 Essential (primary) hypertension (principal); K92.1 Melena; R53.83 Other fatigue
CPT/HCPCS: 36415; 80048; 81001; 82270; 84443; 85025

== ENCOUNTER → 2021-01-08 | Outpatient (CLI) | payer MEDICARE ==
[2021-01-08 10:26] LABS: Basophils # (auto) 0 10 ^3/uL (0-0.2); Basophils % (auto) 0.7 % (0.0-2.0); Eosinophils # (auto) 0.1 10 ^3/uL (0-0.8); Eosinophils % (auto) 1.6 % (0.0-7.0); Hematocrit 28.6 % (41.0-53.0); Hemoglobin 9.5 g/dL (13.5-17.5); Lymphocytes # (auto) 0.5 10 ^3/uL (0.4-5.4); Mean Corpuscular Hemoglobin 32.2 pg (28.0-32.0); Mean Corpuscular Hgb Conc. 33.2 g/dL (32.0-36.0); Monocytes # (auto) 0.5 10 ^3/uL (0-1.3); Neutrophils # (auto) 3.4 10 ^3/uL (1.6-8.6); Neutrophils % (auto) 74.7 % (37.0-80.0); Platelet Count (auto) 393 10^3/uL (140-450); Red Blood Cells 2.95 10^6/uL (4.5-5.90); Red Cell Distribution Width 17.8 % (11.8-14.3); White Blood Cell 4.5 10^3/uL (4.4-10.8)
== END | disposition home or self-care (01) ==
LOC: LAB 10:09
PROVIDERS: ATTEND Student in an Organized Health Care Education/Training Program
DX: Z12.11 Encounter for screening for malignant neoplasm of colon (principal); D50.0 Iron deficiency anemia secondary to blood loss (chronic)
CPT/HCPCS: 36415; 85025

== ENCOUNTER 2021-03-17 09:35 | Emergency (ER) | payer MEDICARE ==
[~2021-03-17] VITALS: Ht 170.2 cm; Wt 59.0 kg
[2021-03-17] MEDS ORDERED: IPRATROPIUM BROM 0.5 MG/2.5ML INH SOL NEB ONE (10:00)
[2021-03-17] MEDS ORDERED: ALBUTEROL SULF 2.5 MG/0.5ML(0.5%) NEB SOLN NEB ONE (10:00)
[2021-03-17] MEDS ORDERED: methylPREDNISolone SOD SUCC 125 MG/2 ML VL IV ONE (10:00)
[2021-03-17] MEDS ORDERED: SODIUM CHLORIDE 0.9% 1,000 ML IV ONE (10:00)
[2021-03-17 10:06] LABS: Basophils # (auto) 0 10 ^3/uL (0-0.2); Basophils % (auto) 0.9 % (0.0-2.0); Eosinophils # (auto) 0.3 10 ^3/uL (0-0.8); Eosinophils % (auto) 6.6 % (0.0-7.0); Hematocrit 32.1 % (41.0-53.0); Hemoglobin 10.8 g/dL (13.5-17.5); Lymphocytes # (auto) 0.5 10 ^3/uL (0.4-5.4); Mean Corpuscular Hemoglobin 31.6 pg (28.0-32.0); Mean Corpuscular Hgb Conc. 33.7 g/dL (32.0-36.0); Mean Corpuscular Volume 93.8 fL (80.0-100.0); Monocytes # (auto) 0.5 10 ^3/uL (0-1.3); Monocytes % (auto) 10.4 % (0.0-12.0); Neutrophils # (auto) 3.7 10 ^3/uL (1.6-8.6); Neutrophils % (auto) 73.1 % (37.0-80.0); Red Blood Cells 3.42 10^6/uL (4.5-5.90); Red Cell Distribution Width 15.9 % (11.8-14.3); White Blood Cell 5.1 10^3/uL (4.4-10.8)
[2021-03-17 10:32] LABS: Albumin 3.8 g/dL (3.4-5.0); Calcium 9.1 mg/dL (8.5-10.1); Magnesium 2.5 mg/dL (1.6-2.6); Potassium 5.1 mmol/L (3.5-5.1)
[2021-03-17 10:38] LABS: BUN/Creatinine Ratio 18.3; Bilirubin, Total 0.3 mg/dL (0.2-1.0); Total Protein 7.4 g/dL (6.4-8.2)
[2021-03-17 11:08] LABS: Urine WBC None Seen /hpf (0 - 3)
[2021-03-17 11:29] LABS: Urine Bacteria NONE SEEN /hpf (None Seen); Urine Blood Negative /uL (Negative); Urine Hyaline Cast FEW /lpf (0 - 2); Urine Specific Gravity 1.015 (1.001-1.035)
[2021-03-17 11:59] VITALS: BP 128/68
== END 2021-03-17 12:10 | disposition home or self-care (01) ==
LOC: ER 09:35
DX: J44.1 Chronic obstructive pulmonary disease with (acute) exacerbation (principal); D64.9 Anemia, unspecified; I10 Essential (primary) hypertension; Z87.891 Personal history of nicotine dependence; Z20.822 Contact with and (suspected) exposure to COVID-19
CPT/HCPCS: 36415; 71045; 80053; 81001; 83735; 84443; 85025; 87426; 93005; 94640; 96361; 96374; 99285; J2930; J7030; J7644

== ENCOUNTER → 2022-04-08 | Outpatient (CLI) | payer MEDICARE ==
[2022-04-08 14:00] LABS: Basophils # (auto) 0 10 ^3/uL (0-0.2); Basophils % (auto) 0.9 % (0.0-2.0); Eosinophils # (auto) 0.3 10 ^3/uL (0-0.8); Eosinophils % (auto) 5.6 % (0.0-7.0); Hematocrit 34.3 % (41.0-53.0); Hemoglobin 10.8 g/dL (13.5-17.5); Lymphocytes # (auto) 0.7 10 ^3/uL (0.4-5.4); Lymphocytes % (auto) 15.3 % (10.0-50.0); Mean Corpuscular Hgb Conc. 31.4 g/dL (32.0-36.0); Mean Corpuscular Volume 95.6 fL (80.0-100.0); Monocytes # (auto) 0.5 10 ^3/uL (0-1.3); Monocytes % (auto) 11.9 % (0.0-12.0); Neutrophils % (auto) 66.3 % (37.0-80.0); Nucleated Red Blood Cells % 0.1 %; Red Blood Cells 3.59 10^6/uL (4.5-5.90); Red Cell Distribution Width 15.1 % (11.8-14.3); White Blood Cell 4.5 10^3/uL (4.4-10.8)
[2022-04-08 14:13] LABS: Urine Bacteria NONE SEEN /hpf (None Seen); Urine Blood Negative /uL (Negative); Urine Hyaline Cast FEW /lpf (0 - 2); Urine WBC <1 /hpf (0 - 3)
[2022-04-08 14:35] LABS: Albumin 4.2 g/dL (3.4-5.0)
[2022-04-08 14:43] LABS: BUN/Creatinine Ratio 34.9; Bilirubin, Total 0.5 mg/dL (0.2-1.0); Calcium 9.3 mg/dL (8.5-10.1)
[2022-04-08 14:56] LABS: Potassium 5.8 mmol/L (3.5-5.1)
== END | disposition home or self-care (01) ==
LOC: LAB 10:29
PROVIDERS: ATTEND Student in an Organized Health Care Education/Training Program
DX: N18.31 Chronic kidney disease, stage 3a (principal); E78.5 Hyperlipidemia, unspecified; R73.9 Hyperglycemia, unspecified; D60.0 Chronic acquired pure red cell aplasia
CPT/HCPCS: 36415; 80053; 80061; 81001; 83036; 85025

== ENCOUNTER 2022-05-06 09:18 | Inpatient (IN) | payer MEDICARE ==
[~2022-05-06] VITALS: Ht 167.6 cm; Wt 52.0 kg
[2022-05-06] MEDS ORDERED: ALBUTEROL SULF 2.5 MG/0.5ML(0.5%) NEB SOLN NEB ONE (10:15)
[2022-05-06] MEDS ORDERED: IPRATROPIUM BROM 0.5 MG/2.5ML INH SOL NEB ONE (10:15)
[2022-05-06] MEDS ORDERED: DexAMETHasone SOD PHOS 10MG/1ML VIAL INJ IV ONE (10:15)
[2022-05-06 10:46] LABS: Basophils # (auto) 0 10 ^3/uL (0-0.2); Basophils % (auto) 0.3 % (0.0-2.0); Eosinophils # (auto) 0.1 10 ^3/uL (0-0.8); Eosinophils % (auto) 1.1 % (0.0-7.0); Hematocrit 34.1 % (41.0-53.0); Hemoglobin 10.9 g/dL (13.5-17.5); Lymphocytes # (auto) 0.1 10 ^3/uL (0.4-5.4); Lymphocytes % (auto) 1.7 % (10.0-50.0); Mean Corpuscular Hemoglobin 30.5 pg (28.0-32.0); Mean Corpuscular Hgb Conc. 32.1 g/dL (32.0-36.0); Mean Corpuscular Volume 94.9 fL (80.0-100.0); Monocytes # (auto) 0.9 10 ^3/uL (0-1.3); Monocytes % (auto) 11.6 % (0.0-12.0); Neutrophils # (auto) 6.9 10 ^3/uL (1.6-8.6); Neutrophils % (auto) 85.3 % (37.0-80.0); Red Blood Cells 3.59 10^6/uL (4.5-5.90); Red Cell Distribution Width 14.9 % (11.8-14.3)
[2022-05-06 10:59] LABS: Albumin 3.3 g/dL (3.4-5.0); BUN/Creatinine Ratio 18.4; Bilirubin, Total 0.4 mg/dL (0.2-1.0); Calcium 8.8 mg/dL (8.5-10.1); Total Protein 6.5 g/dL (6.4-8.2)
[2022-05-06 11:06] LABS: Potassium 6.3 mmol/L (3.5-5.1)
[2022-05-06] MEDS ORDERED: AZITHROMYCIN 500MG/ 250ML 250 ML IV ONE ×3 (11:15→12:00)
[2022-05-06] MEDS ORDERED: CEFTRIAXONE SODIUM 2 GM in D5W 5% 50 ML IV ONE (11:15)
[2022-05-06] MEDS ORDERED: InsuLIN REG 1unit/0.01ml Soln (100units/ml) IV ONE (11:30)
[2022-05-06] MEDS ORDERED: SODIUM ZIRCONIUM CYCL 10 GM PAK PO ONE ×3 (11:30→12:30)
[2022-05-06] MEDS ORDERED: DEXTROSE (50%) 50ML SYRG IV ONE (11:30)
[2022-05-06] MEDS ORDERED: CALCIUM GLUC 1,000mg/50ml-NS 50 ML IV ONE (11:30)
[2022-05-06] MEDS ORDERED: SODIUM CHLORIDE 0.9% 1,000 ML IV ONE (11:30)
[2022-05-06] MEDS ORDERED: HYDROcodone-ACET 5/325MG TAB PO PRN (11:45)
[2022-05-06] MEDS ORDERED: ACETAMINOPHEN 325 MG TAB PO PRN (11:45)
[2022-05-06] MEDS ORDERED: DOCUSATE SOD 100 MG CAP PO PRN (11:45)
[2022-05-06] MEDS ORDERED: NITROGLYCERIN 0.4 MG SL TAB SL PRN (11:45)
[2022-05-06] MEDS ORDERED: ALUM & MAG HYDROX-SIMETH LIQ(MAALOX) 30 ML PO PRN (11:45)
[2022-05-06] MEDS ORDERED: MORPHINE SULFATE INJ 2 MG/ml SYRG IV PRN (11:45)
[2022-05-06] MEDS: SODIUM CHLORIDE 0.9% 1,000 ML IV SCH ×2 (11:45→20:33)
[2022-05-06] MEDS ORDERED: ONDANSETRON HCL 4 MG/2 ML VIAL IV PRN (11:45)
[2022-05-06] MEDS ORDERED: ALBUTEROL SULF 2.5 MG/0.5ML(0.5%) NEB SOLN NEB PRN (12:00)
[2022-05-06 12:22] VITALS: BP 101/61
[2022-05-06 12:33] LABS: Lactic Acid w/Reflex 2.3 mmol/L (0.4-2.0)
[2022-05-06] MEDS ORDERED: hydrALAZINE HCL 20 MG/ML VL IV PRN (12:45)
[2022-05-06] MEDS: methylPREDNISolone SOD SUCC 40 MG/ML VL IV SCH ×2 (14:00→22:55)
[2022-05-06] MEDS ORDERED: SODIUM BICARBONATE 8.4 % INJ 50ML VIAL IV ONE (14:30)
[2022-05-06] MEDS: IPRATROPIUM BROM 0.5 MG/2.5ML INH SOL NEB PRN (15:30)
[2022-05-06 17:00] VITALS: BP 123/67
[2022-05-06 17:57] VITALS: BP 123/67
[2022-05-06] MEDS ORDERED: TRAM50TA2 PO (18:31)
[2022-05-06] MEDS ORDERED: LEVALBUTEROL HCL 1.25 MG/3 ML NEB NEB PRN ×2 (19:15→19:30)
[2022-05-06] MEDS: MORPHINE SULFATE INJ 2 MG/ml SYRG IV PRN (20:35)
[2022-05-06] MEDS: SODIUM ZIRCONIUM CYCL 10 GM PAK PO SCH (21:10)
[2022-05-06] MEDS ORDERED: MELATONIN 5 MG TAB PO SCH (22:00)
[2022-05-06 22:46] VITALS: BP 96/50
[2022-05-06] MEDS: MELATONIN 5 MG TAB PO SCH (22:55)
[2022-05-07] MEDS: SODIUM ZIRCONIUM CYCL 10 GM PAK PO SCH ×3 (05:23→21:00)
[2022-05-07] MEDS: methylPREDNISolone SOD SUCC 40 MG/ML VL IV SCH ×3 (05:23→23:00)
[2022-05-07] MEDS: IPRATROPIUM BROM 0.5 MG/2.5ML INH SOL NEB PRN (05:53)
[2022-05-07 05:54] VITALS: BP 154/73
[2022-05-07 07:46] LABS: Basophils # (auto) 0 10 ^3/uL (0-0.2); Basophils % (auto) 0.4 % (0.0-2.0); Eosinophils # (auto) 0 10 ^3/uL (0-0.8); Hematocrit 31.1 % (41.0-53.0); Hemoglobin 10.1 g/dL (13.5-17.5); Lymphocytes # (auto) 0.1 10 ^3/uL (0.4-5.4); Lymphocytes % (auto) 0.8 % (10.0-50.0); Mean Corpuscular Hemoglobin 30.4 pg (28.0-32.0); Mean Corpuscular Hgb Conc. 32.6 g/dL (32.0-36.0); Mean Corpuscular Volume 93.1 fL (80.0-100.0); Monocytes # (auto) 0.6 10 ^3/uL (0-1.3); Monocytes % (auto) 8.3 % (0.0-12.0); Neutrophils # (auto) 6.1 10 ^3/uL (1.6-8.6); Neutrophils % (auto) 90.5 % (37.0-80.0); Red Blood Cells 3.33 10^6/uL (4.5-5.90); Red Cell Distribution Width 14.7 % (11.8-14.3); White Blood Cell 6.7 10^3/uL (4.4-10.8)
[2022-05-07] MEDS: PANTOPRAZOLE 40 MG/10 ML VIAL INJ IV SCH (08:01)
[2022-05-07] MEDS: MORPHINE SULFATE INJ 2 MG/ml SYRG IV PRN (08:02)
[2022-05-07] MEDS: AZITHROMYCIN 500MG/ 250ML 250 ML IV SCH (08:02)
[2022-05-07] MEDS: SODIUM CHLORIDE 0.9% 1,000 ML IV SCH ×3 (08:03→23:00)
[2022-05-07 08:06] LABS: Albumin 2.8 g/dL (3.4-5.0); BUN/Creatinine Ratio 23.6; Bilirubin, Total 0.4 mg/dL (0.2-1.0); Calcium 8.2 mg/dL (8.5-10.1); Total Protein 5.9 g/dL (6.4-8.2)
[2022-05-07 08:50] LABS: Amphetamine Screen, Urine NEGATIVE (NEGATIVE); Barbiturate Scree,Urine NEGATIVE (NEGATIVE); Benzodiazephine Screen, Urine NEGATIVE (NEGATIVE); Cannabinoid Screen, Urine NEGATIVE (NEGATIVE); Cocaine Screen, Urine NEGATIVE (NEGATIVE); Opiate Scree,Urine NEGATIVE (NEGATIVE); Phencyclidine Screen, Urine NEGATIVE (NEGATIVE)
[2022-05-07 09:28] VITALS: BP 123/64
[2022-05-07 13:00] VITALS: BP 107/56
[2022-05-07] MEDS ORDERED: traMADol HCL 50 MG TAB PO ONE (13:00)
[2022-05-07 16:43] VITALS: BP 104/64
[2022-05-07] MEDS: BUDESONIDE (INHALATION) 0.5 MG/2 ML NEB NEB SCH (19:08)
[2022-05-07 22:00] VITALS: BP 112/70
[2022-05-07] MEDS: MELATONIN 5 MG TAB PO SCH (23:00)
[2022-05-08 05:00] VITALS: BP 113/61
[2022-05-08] MEDS: methylPREDNISolone SOD SUCC 40 MG/ML VL IV SCH ×3 (05:17→21:10)
[2022-05-08] MEDS: SODIUM ZIRCONIUM CYCL 10 GM PAK PO SCH (05:18)
[2022-05-08 05:54] LABS: Basophils # (auto) 0 10 ^3/uL (0-0.2); Basophils % (auto) 0.2 % (0.0-2.0); Eosinophils # (auto) 0 10 ^3/uL (0-0.8); Hematocrit 28.9 % (41.0-53.0); Hemoglobin 9.7 g/dL (13.5-17.5); Lymphocytes # (auto) 0.1 10 ^3/uL (0.4-5.4); Lymphocytes % (auto) 1.3 % (10.0-50.0); Mean Corpuscular Hemoglobin 31.2 pg (28.0-32.0); Mean Corpuscular Hgb Conc. 33.5 g/dL (32.0-36.0); Mean Corpuscular Volume 93.3 fL (80.0-100.0); Monocytes # (auto) 0.5 10 ^3/uL (0-1.3); Monocytes % (auto) 9.9 % (0.0-12.0); Neutrophils # (auto) 4.2 10 ^3/uL (1.6-8.6); Neutrophils % (auto) 88.6 % (37.0-80.0); Nucleated Red Blood Cells % 0.2 %; White Blood Cell 4.7 10^3/uL (4.4-10.8)
[2022-05-08 06:31] LABS: Potassium 4.5 mmol/L (3.5-5.1)
[2022-05-08 06:35] LABS: Albumin 2.3 g/dL (3.4-5.0); BUN/Creatinine Ratio 32.2; Calcium 7.9 mg/dL (8.5-10.1)
[2022-05-08] MEDS: BUDESONIDE (INHALATION) 0.5 MG/2 ML NEB NEB SCH ×3 (06:37→20:00)
[2022-05-08 06:48] LABS: Bilirubin, Total 0.3 mg/dL (0.2-1.0); Total Protein 5.4 g/dL (6.4-8.2)
[2022-05-08] MEDS: AZITHROMYCIN 500MG/ 250ML 250 ML IV SCH (09:24)
[2022-05-08] MEDS: PANTOPRAZOLE 40 MG/10 ML VIAL INJ IV SCH (09:24)
[2022-05-08] MEDS: traMADol HCL 50 MG TAB PO SCH (14:47)
[2022-05-08 17:00] VITALS: BP 105/60
[2022-05-08] MEDS: SENNA 8.6 MG TAB PO SCH (21:11)
[2022-05-08] MEDS: MELATONIN 5 MG TAB PO SCH (21:11)
[2022-05-08 22:00] VITALS: BP 107/70
[2022-05-09 05:00] VITALS: BP 139/61
[2022-05-09] MEDS: methylPREDNISolone SOD SUCC 40 MG/ML VL IV SCH ×2 (06:51→21:22)
[2022-05-09 08:31] VITALS: BP 119/63
[2022-05-09] MEDS: BUDESONIDE (INHALATION) 0.5 MG/2 ML NEB NEB SCH (09:19)
[2022-05-09] MEDS: AZITHROMYCIN 500MG/ 250ML 250 ML IV SCH (11:15)
[2022-05-09] MEDS: PANTOPRAZOLE 40 MG/10 ML VIAL INJ IV SCH (11:15)
[2022-05-09 11:31] VITALS: BP 128/61
[2022-05-09 12:33] VITALS: BP 125/65
[2022-05-09] MEDS: POLYETHYLENE GLYCOL 17 GM PWDR PO SCH (13:24)
[2022-05-09] MEDS: traMADol HCL 50 MG TAB PO SCH (13:27)
[2022-05-09] MEDS ORDERED: traMADol HCL 50 MG TAB PO PRN (14:15)
[2022-05-09] MEDS ORDERED: cefTRIAXone 1GM/50ML D5W 50 ML IV ONE (14:15)
[2022-05-09 19:32] LABS: Urine Bacteria FEW /hpf (None Seen); Urine Blood Negative /uL (Negative); Urine Hyaline Cast MOD /lpf (0 - 2); Urine Specific Gravity 1.015 (1.001-1.035); Urine WBC 1 /hpf (0 - 3)
[2022-05-09 20:00] VITALS: BP 112/61
[2022-05-09] MEDS: MELATONIN 5 MG TAB PO SCH (21:21)
[2022-05-09] MEDS: SENNA 8.6 MG TAB PO SCH (21:21)
[2022-05-09 22:00] VITALS: BP 112/61
[2022-05-10] VITALS (11 sets, daily range): BP systolic 78–166; BP diastolic 46–114
[2022-05-10] MEDS: BUDESONIDE (INHALATION) 0.5 MG/2 ML NEB NEB SCH (07:21)
[2022-05-10 07:56] LABS: Calcium 8.6 mg/dL (8.5-10.1); Potassium 4.6 mmol/L (3.5-5.1)
[2022-05-10 07:58] LABS: BUN/Creatinine Ratio 41.2
[2022-05-10 08:00] LABS: Hematocrit 35.2 % (41.0-53.0); Hemoglobin 11.4 g/dL (13.5-17.5); Mean Corpuscular Hemoglobin 30.8 pg (28.0-32.0); Mean Corpuscular Hgb Conc. 32.4 g/dL (32.0-36.0); Mean Corpuscular Volume 95.1 fL (80.0-100.0); Red Cell Distribution Width 15.7 % (11.8-14.3); White Blood Cell 7.1 10^3/uL (4.4-10.8)
[2022-05-10 08:04] LABS: Basophils % (manual) 0 (0.0-2.0); Blast Cells 0; Eosinophils % (manual) 0 (0-7); Myelocytes % 0; Promyelocytes % 0; Reactive Lymphocytes 0
[2022-05-10] MEDS ORDERED: cefTRIAXone 1GM/50ML D5W 50 ML IV SCH (09:00)
[2022-05-10] MEDS ORDERED: FUROSEMIDE 40 MG/4 ML VIAL IV ONE (09:15)
[2022-05-10] MEDS ORDERED: LORazepam 2MG/ML-1ML VIAL IV ONE (09:15)
[2022-05-10] MEDS: methylPREDNISolone SOD SUCC 40 MG/ML VL IV SCH (09:53)
[2022-05-10] MEDS: AZITHROMYCIN 500MG/ 250ML 250 ML IV SCH (09:58)
[2022-05-10] MEDS: POLYETHYLENE GLYCOL 17 GM PWDR PO SCH (09:59)
[2022-05-10] MEDS ORDERED: SODIUM BICARBONATE 50ML VIAL 50 ML in SOD CHL 0.45% 1,000 ML IV SCH (10:45)
[2022-05-10] MEDS ORDERED: MIDAZOLAM DRIP 50 mg/50mL 50 ML IV ONE (10:53)
[2022-05-10] MEDS ORDERED: ENOXAPARIN SOD 30 MG/0.3 ML SYRINGE SC ONE (11:00)
[2022-05-10] MEDS ORDERED: PROPOFOL 100 ML IV SCH ×2 (11:00→11:30)
[2022-05-10] MEDS ORDERED: fentaNYL Drip 2500mCg/250mlNS 250 ML IV SCH ×2 (11:00→11:30)
[2022-05-10] MEDS ORDERED: MIDAZOLAM DRIP 50 mg/50mL 50 ML IV SCH ×2 (11:00→11:30)
[2022-05-10] MEDS ORDERED: PANTOPRAZOLE 40 MG/10 ML VIAL INJ IV ONE (11:00)
[2022-05-10] MEDS ORDERED: NOREPINEPHRINE 8 MG/250ML KIT 250 ML IV SCH ×2 (11:00→11:30)
[2022-05-10] MEDS ORDERED: MEROPENEM 1GM IVPB 100 ML IV ONE (11:00)
[2022-05-10 11:52] LABS: Band Neutrophils % (manual) 29; Lymphocytes % (manual) 9 (10.0-50.0); Metamyelocytes % 5; Monocytes % (manual) 7 (0-12)
[2022-05-10] MEDS ORDERED: fentaNYL CITRATE 100 MCG/2 ML VL ONE (11:57)
[2022-05-10] MEDS ORDERED: MIDAZOLAM HCL 5 MG/ML-1ML VIAL ONE (11:57)
[2022-05-10] MEDS ORDERED: SODIUM CHLORIDE LOCK 0 ML ONE (11:57)
[2022-05-10] MEDS ORDERED: diphenhdrAMINE HCL 50 MG/1 ML VL ONE (11:57)
[2022-05-10 12:06] LABS: Basophils # (auto) 0 10 ^3/uL (0-0.2); Eosinophils # (auto) 0 10 ^3/uL (0-0.8); Lymphocytes # (auto) 0.3 10 ^3/uL (0.4-5.4); Neutrophils % (auto) 91.2 % (37.0-80.0)
[2022-05-10 12:07] LABS: Basophils % (auto) 0.1 % (0.0-2.0); Eosinophils % (auto) 0.1 % (0.0-7.0); Hemoglobin 10.2 g/dL (13.5-17.5); Lymphocytes % (auto) 2.7 % (10.0-50.0); Mean Corpuscular Hemoglobin 31.7 pg (28.0-32.0); Mean Corpuscular Hgb Conc. 31.8 g/dL (32.0-36.0); Mean Corpuscular Volume 99.7 fL (80.0-100.0); Monocytes # (auto) 0.6 10 ^3/uL (0-1.3); Monocytes % (auto) 5.9 % (0.0-12.0); Neutrophils # (auto) 8.9 10 ^3/uL (1.6-8.6); Nucleated Red Blood Cells % 1.3 %; Red Blood Cells 3.21 10^6/uL (4.5-5.90); Red Cell Distribution Width 16.5 % (11.8-14.3); White Blood Cell 9.7 10^3/uL (4.4-10.8)
[2022-05-10 12:36] LABS: INR 1.32 (0.9-1.15); Partial Thromboplastin Time 32.2 sec (24.6-33.4)
[2022-05-10 12:45] LABS: Alanine Aminotransferase 109 U/L (16-61); Alkaline Phosphatase 104 U/L (45-117); Anion Gap 10 (5-15); Aspartate Aminotransferase 79 U/L (15-37); BUN/Creatinine Ratio 33.5; Bilirubin, Total 0.3 mg/dL (0.2-1.0); Blood Urea Nitrogen 77 mg/dL (7-18); Calcium 8.6 mg/dL (8.5-10.1); Carbon Dioxide 23 mmol/L (21-32); Chloride 99 mmol/L (98-107); GFR African American 36 mL/min; GFR Non-African American 30 mL/min; Glucose 133 mg/dL (74-106); Potassium 4.9 mmol/L (3.5-5.1); Sodium 132 mmol/L (136-145)
[2022-05-10] MEDS ORDERED: EPINEPHrine HCL 1 MG/10 ML SYRG IV ONE (12:45)
[2022-05-10] MEDS ORDERED: SODIUM BICARBONATE 8.4% INJ 50ML SYRINGE IV ONE (12:45)
[2022-05-10 12:46] LABS: Albumin 1.6 g/dL (3.4-5.0)
[2022-05-10] MEDS ORDERED: LABETALOL HCL 5 MG/ML 4ML SYRINGE IV PRN (13:15)
[2022-05-10] MEDS ORDERED: LABETALOL HCL 5 MG/ML 4ML SYRINGE IV ONE (13:17)
[2022-05-10] MEDS ORDERED: MORPHINE SULFATE INJ 2 MG/ml SYRG IV PRN (14:00)
[2022-05-10] MEDS ORDERED: LORazepam 2MG/ML-1ML VIAL IV PRN (14:00)
[2022-05-10] MEDS ORDERED: MEROPENEM 1GM IVPB 100 ML IV SCH (14:00)
[2022-05-10] MEDS ORDERED: LINEZOLID 600MG/300ML 300 ML IV SCH (22:00)
[2022-05-11] MEDS ORDERED: ENOXAPARIN SOD 30 MG/0.3 ML SYRINGE SC SCH (10:00)
[2022-05-11] MEDS ORDERED: PANTOPRAZOLE 40 MG/10 ML VIAL INJ IV SCH (10:00)
== END 2022-05-10 19:36 | DRG 871 ==
LOC: EDBD 09:18 → ER 09:18 → TELE 11:49 → TELE-WESTW 17:17 → ICU WEST 05-10 11:18
PROVIDERS: ADMIT Family Medicine; ATTEND Internal Medicine
PROC: 5A1935Z Respiratory Ventilation, Less than 24 Consecutive Hours (ICD-10-PCS; principal; 2022-05-10)
PROC: 0BH17EZ Insertion of Endotracheal Airway into Trachea, Via Natural or Artificial Opening (ICD-10-PCS; 2022-05-10)
PROC: 02HV33Z Insertion of Infusion Device into Superior Vena Cava, Percutaneous Approach (ICD-10-PCS; 2022-05-10)
PROC: 5A12012 Performance of Cardiac Output, Single, Manual (ICD-10-PCS; 2022-05-10)
PROC: 5A09357 Assistance with Respiratory Ventilation, Less than 24 Consecutive Hours, Continuous Positive Airway Pressure (ICD-10-PCS; 2022-05-10)
DX: A41.9 Sepsis, unspecified organism (principal); I46.9 Cardiac arrest, cause unspecified; J18.9 Pneumonia, unspecified organism; J96.21 Acute and chronic respiratory failure with hypoxia; N17.0 Acute kidney failure with tubular necrosis; J44.1 Chronic obstructive pulmonary disease with (acute) exacerbation; E46 Unspecified protein-calorie malnutrition; Z68.1 Body mass index [BMI] 19.9 or less, adult; J44.0 Chronic obstructive pulmonary disease with (acute) lower respiratory infection; Z66 Do not resuscitate; E87.5 Hyperkalemia; N18.2 Chronic kidney disease, stage 2 (mild); D63.1 Anemia in chronic kidney disease; I48.91 Unspecified atrial fibrillation; I12.9 Hypertensive chronic kidney disease with stage 1 through stage 4 chronic kidney disease, or unspecified chronic kidney disease; K59.00 Constipation, unspecified; Z99.81 Dependence on supplemental oxygen; Z51.5 Encounter for palliative care
CPT/HCPCS: 36415; 36600; 71045; 76775; 80048; 80053; 80307; 81001; 82306; 82570; 82805; 83036; 83605; 83880; 83970; 84100; 84156; 84300; 84484; 85007; 85025; 85027; 85610; 85730; 87040; 87070; 87077; 87186; 87205; 92950; 93005; 94003; 94640; 94660; 96365; 96366; 96368; 96375; C9113; G0378; J0696; J1100; J1815; J2185; J2250; J2405; J2704; J3490; J7060